=== PATIENT | male | born 1960 | race Caucasian/White ===

== ENCOUNTER 2023-02-04 09:05 | Outpatient (REF) | payer OTHER, SELFPAY ==
[2023-02-04 11:19] LABS: MANUAL DIFF FLAG NO
[2023-02-04 12:10] LABS: Basophils Percent Auto 0.2 % (0-2); Eosinophils Absolute Auto 0.1 X10*3/uL (0.0-0.4); Eosinophils Percent Auto 1.5 % (0-4); Hematocrit 47.8 % (42.0-52.0); Hemoglobin 16.1 g/dl (14.0-18.0); Imm Gran Abs Auto 0.01 X10*3/uL (0.00-0.03); Imm Gran Pct Auto 0.2 % (0.0-0.4); Lymphocytes Absolute Auto 1.3 X10*3/uL (1.2-4.9); Lymphocytes Percent Auto 27.2 % (20-40); Mean Corpuscular HGB Conc 33.7 g/dl (31.0-36.0); Mean Corpuscular Hemoglobin 29.9 pg (27.0-33.0); Mean Corpuscular Volume 88.8 fL (80.0-98.0); Mean Platelet Volume 9.6 fL (9.4-12.4); Monocytes Absolute Auto 0.4 X10*3/uL (0.1-1.2); Neutrophils Percent Auto 62.9 % (45-73); Platelet Count 177 X10*3/uL (160-400); Red Blood Count 5.38 X10*6/uL (4.60-5.80); Red Cell Distribution Width 12.3 % (11.0-16.0); White Blood Count 4.8 X10*3/uL (4.8-10.8)
[2023-02-04 12:25] LABS: Prostate Specific Antigen 5.84 ng/mL (<0.05-4.0)
[2023-02-04 12:29] LABS: ~HepC Num1 0.21 S/CO (0.00-0.79); ~Hepatitis C Antibody Nonreactive (Nonreactive)
[2023-02-04 12:31] LABS: HBc Num1 0.09 S/CO (0.00-0.79); HBsAGNum1 0.37 S/CO (0.00-0.99); Hepatitis A Antibody IgM 0.58 Index (0-0.79); Hepatitis B Core Antibody Nonreactive (Nonreactive); Hepatitis B Surface Antigen Negative (Negative); ~HepC Num1 0.21 S/CO (0.00-0.79); ~Hepatitis A Antibody IgM Nonreactive (Nonreactive); ~Hepatitis B Surface Antibody NONREACTIVE (Nonreactive); ~Hepatitis C Antibody Nonreactive (Nonreactive)
[2023-02-04 12:34] LABS: Alanine Aminotransferase 17 U/L (0-40); Albumin Level 4.3 g/dL (3.5-5.0); Alkaline Phosphatase 54 U/L (39-117); Anion Gap 12 (12-20); Aspartate Amino Transferase 22 U/L (5-37); Bilirubin Direct 0.3 mg/dL (0.0-0.5); Bilirubin Total 0.7 mg/dL (0.0-1.0); Blood Urea Nitrogen 16 mg/dL (9-16); Calcium 9.6 mg/dL (8.4-10.2); Carbon Dioxide 29 mmol/L (22-29); Chloride 104 mmol/L (96-108); Cholesterol 171 mg/dL (<200); Estimated Glomerular Filt Rate > 60; Glucose Random 91 mg/dL (60-115); HDL Cholesterol 62 mg/dL (>40); LDL Cholesterol Calculated 96 mg/dL (<100); Sodium 141 mmol/L (135-145); TSH reflex Free T4 2.15 uIU/mL (0.32-4.0); Triglycerides 68 mg/dL (<150); Vitamin D 25-OH Total 100.4 ng/mL (>30)
[2023-02-07 19:49] LABS: HIV RNA PCR Qn Copies Not Detected Copies/mL; HIV RNA PCR Qn Log Copies Not Detected Log cps/mL
== END 2023-02-04 09:06 | disposition home or self-care (01) ==
LOC: HO.HHCL 09:05
PROVIDERS: Visit Provider Pediatrics
DX: Z00.00 Encounter for general adult medical examination without abnormal findings (principal); Z20.2 Contact with and (suspected) exposure to infections with a predominantly sexual mode of transmission; Z12.5 Encounter for screening for malignant neoplasm of prostate
CPT/HCPCS: 36415; 80048; 80061; 80076; 82306; 84153; 84443; 85025; 86704; 86706; 86709; 86803; 87340; 87536; 87900

== ENCOUNTER 2023-05-15 14:45 | Outpatient (AMB) | payer OTHER, SELFPAY ==
--- NOTE | 2023-05-15 15:00 | A.OFFVIS_ITS ---
Intake Intake Visit Reasons: Elevated PSA Intake Note: New Patient presents for initial visit for elevated psa(psa 5.84) Urology Medications: none Blood Thinner: none Progressive Care Nurse Required: No Accompanied by: Self / Same As Patient Allergies No Known Allergies [No Known Allergies*] Allergy (Unverified 05/15/23 16:05) Medication List - Last Reconciled 05/15/23 by MARIANELA Schumacher No Known Home Meds HPI HPI Comments History of Present Illness Details Willy Rodriguez is a very pleasant 62-year-old male patient of Dr. Dennis. He presents to the office today as a new patient for an elevated PSA. In review of patient's chart it appears PSA 02/06--5.8. When asked he denies any bothersome urinary issues or concerns at this time. Discussed at length potential causes of elevated PSA. Discussed obtaining redraw of PSA as well as retroperitoneal ultrasound for further assessment evaluation. When asked he denies urinary urgency, urinary frequency, incontinence, nocturia, hematuria, dysuria, foul smelling urine, changes to urinary stream, flank pain, fever, and or chills. He is happy with his current voiding parameters. He denies any known family history of prostate cancer. HILLARY offered however deferred. In office urinalysis results reviewed with the patient today. He otherwise offers no other issues or concerns at this time Review of Systems Const All systems reviewed & are unremarkable except as noted in HPI and below Physical Exam Const General: cooperative, comfortable, no acute distress, well developed, alert and awake Orientation/consciousness: patient oriented x3 HEENT Head: Yes normal to inspection, Yes normocephalic and Yes atraumatic Ears: hearing grossly normal bilaterally Eyes General: appearance normal, both eyes and all related structures Neck Neck: Yes normal visual inspection and Yes trachea midline Chest Chest palpation & inspection: normal inspection of the chest Resp Effort & Inspection: normal respiratory effort and able to speak in complete sentences Cardio Rate: regular rate GI Inspection: Yes normal to inspection Rectal Exam - Male: Yes deferred General: Yes no CVA tenderness Back/Spine/Pelvis Back: no CVA tenderness Skin General skin exam: no rashes or lesions noted Neuro General: patient oriented x3 Extrem General: Yes normal to inspection Psych Appearance: grossly normal and well kempt Mental Status: mental status grossly normal Speech and movement: Normal speech and movement present and Clear speech present Affect: normal affect Attitude: cooperative Thought process: Normal thought process present Thought content: Normal thought content present Insight: Fair insight present (Psych) Judgement: Fair judgement present (Psych) Results AMB Urinalysis, Automated UA Leukoctes 0 Blanco/uL Last Edit by Morenita Jackson on 05/15/23 15:51 UA Nitrite Negative Last Edit by Morenita Jackson on 05/15/23 15:51 UA Urobilinogen 0.2 mg/dL Last Edit by Zenput[employer]ques BOARDZsameer on 05/15/23 15:51 UA Protein 0 mg/dL Last Edit by Palma[employer] on 05/15/23 15:51 UA pH 6.0 Last Edit by [employer]jac[employer] BOARD[employer]sameer on 05/15/23 15:51 UA Blood 0 Varinder/uL Last Edit by [employer] on 05/15/23 15:51 UA Specific [place] 1.030 Last Edit by [employer] on 05/15/23 15:51 UA Ketone Negative Last Edit by [employer] on 05/15/23 15:51 UA Bilirubin 0 mg/dL Last Edit by [employer] on 05/15/23 15:51 UA Glucose 0 mg/dL Last Edit by Zenputjacques BOARDZsameer on 05/15/23 15:51 Results Reviewed Results Reviewed: Laboratory Last Values Urine pH (Auto) 6.0 05/15/23 15:08 Specific [place] (Auto) 1.030 05/15/23 15:08 Urine Protein (Auto) 0 mg/dL 05/15/23 15:08 Glucose (UA)(Auto) 0 mg/dL 05/15/23 15:08 Urine Ketones (Auto) Negative 05/15/23 15:08 Urine Blood (Auto) 0 Varinder/uL 05/15/23 15:08 Urine Nitrite (Auto) Negative 05/15/23 15:08 Urine Bilirubin (Auto) 0 mg/dL 05/15/23 15:08 Urine Urobilinogen (Auto) 0.2 mg/dL 05/15/23 15:08 Leukocyte Esterase (Auto) 0 Blanco/uL 05/15/23 15:08 Assessment & Plan Assessment & Plan (1) Elevated PSA: Code(s): R97.20 - Elevated prostate specific antigen [PSA] Plan In office urinalysis results reviewed with the patient today; as noted above. HILLARY offered however deferred. Discussed at length potential causes for elevated PSA. Discussed redraw of PSA with no sex the night before, no coffee morning of, and no heavy lifting 1-2 days prior to lab draw. Will obtain retroperitoneal ultrasound for further assessment evaluation. Patient denies any bothersome urinary issues or concerns. He reports be happy with current voiding parameters. Follow-up in 4-6 weeks with labs and imaging to be completed prior; or sooner with any issues, concerns, and or questions. Orders: Orders AMB Urinalysis Automated Today Z13.9 - Encounter for screening, unspecified US retroperitoneal comp Today R97.20 - Elevated prostate specific antigen [PSA] PSA,Total (Free>4and<10) Today R97.20 - Elevated prostate specific antigen [PSA] Patient Instructions: The patient had an opportunity to ask questions regarding the treatment plan. All questions were answered. Physical exam, labs, and imaging were discussed and reviewed in detail. As well as risks, benefits, and discussion of treatment choices. No major barriers to understanding were identified. The patient expressed understanding and agreement with the above treatment plan. The patient was made aware they should contact our office by phone for worsening of their current condition, the appearance of new symptoms, or with any questions or concerns. Compliance is encouraged with any medications and follow up testing that is ordered. It is a privilege to be allowed the opportunity to participate in? your urological care.? Again, if you have any questions or concerns If you have any questions or concerns please do not hesitate to contact me. The office is [phone]. This note is constructed using voice recognition software. While every effort has been made to ensure accuracy director of corporate communications errors may have been included. Yours sincerely, MARIANELA Schumacher Coding Level of Care Code New Pt Level 3 (91110) Diagnoses Elevated PSA R97.20
== END 2023-05-15 15:46 | disposition home or self-care (01) ==
PROVIDERS: PCP Family Medicine; Visit Provider Nurse Practitioner Family
DX: R97.20 Elevated prostate specific antigen [PSA] (principal); Z13.9 Encounter for screening, unspecified
CPT/HCPCS: 99203

== ENCOUNTER → 2023-05-15 14:45 | Outpatient (BNVA) | payer OTHER, SELFPAY | PROVIDERS: PCP Family Medicine; Visit Provider Nurse Practitioner Family | DX: R97.20 Elevated prostate specific antigen [PSA] (principal) | CPT/HCPCS: 81003 ==

== ENCOUNTER 2023-06-07 12:39 | Outpatient (REF) | payer OTHER, SELFPAY ==
[2023-06-07 14:26] LABS: PSA,Total (Free>4and<10) 3.67 ng/mL (0.00-4.00)
== END 2023-06-07 12:40 | disposition home or self-care (01) ==
LOC: HO.HHCL 12:39
PROVIDERS: Visit Provider Nurse Practitioner Family
DX: Z12.5 Encounter for screening for malignant neoplasm of prostate (principal); R97.20 Elevated prostate specific antigen [PSA]
CPT/HCPCS: 36415; 84153

== ENCOUNTER 2023-06-07 13:56 | Outpatient (REF) | payer OTHER, SELFPAY ==
--- NOTE | ~2023-06-07 | US_ITS ---
EXAMINATION: US RETROPERITONEAL COMPLETE (RENAL) CLINICAL INFORMATION: Elevated prostate specific antigen. COMPARISON: Ultrasound abdomen 04/23/2019. CT abdomen and pelvis 04/22/2019. TECHNIQUE: Real-time imaging of the kidneys and bladder. FINDINGS: RIGHT KIDNEY: 9.1 x 4.5 x 5.6 cm (SAG x AP x TRV). The kidney is normal in size, contour, and echogenicity. Renal cortical thickness is normal. No calculi or focal parenchymal lesions. No hydronephrosis. LEFT KIDNEY: 10.4 x 5.3 x 5.0 cm (SAG x AP x TRV). The kidney is normal in size, contour, and echogenicity. Renal cortical thickness is normal. No calculi or focal parenchymal lesions. No hydronephrosis. BLADDER: Well distended and normal. Bilateral ureteral jets are demonstrated. Prevoid bladder volume is 382 mL. Postvoid bladder volume is 65.6 mL. Enlarged prostate volume 46.0 mL. US/US retroperitoneal comp IMPRESSION: Enlarged prostate 46 g with 65.6 mL post void residual.
== END 2023-06-07 13:57 | disposition home or self-care (01) ==
LOC: HO.US 13:56
PROVIDERS: PCP Pediatrics; Visit Provider Nurse Practitioner Family
DX: R97.20 Elevated prostate specific antigen [PSA] (principal)
CPT/HCPCS: 76770

== ENCOUNTER 2023-06-12 14:31 | Outpatient (AMB) | payer OTHER, SELFPAY ==
--- NOTE | 2023-06-12 15:02 | MHC.OFFVIS ---
Intake Intake Visit Reasons: 1m/US/PSA Intake Note: New Patient presents for initial visit for elevated psa/ultrasound (psa 3.67)(imaging 06/07/23) Urology Medications: none Blood Thinner: none Child Care Development Specialist Required: No Accompanied by: Self / Same As Patient Allergies No Known Allergies [No Known Allergies*] Allergy (Unverified 06/12/23 15:34) Medication List - Last Reconciled 06/12/23 by MARIANELA Schumacher No Known Home Meds HPI HPI Comments History of Present Illness Details Willy Rodriguez is a very pleasant 63-year-old male patient of Dr. Dennis. He presents to the office today for follow-up of his elevated PSA. Of note, patient was seen approximately 6 weeks ago at which time recommendations were made for redraw of PSA and retroperitoneal ultrasound for further assessment evaluation. These results were reviewed with the patient today. Bilateral kidneys with no calculi, lesions, and or hydronephrosis noted. Pre void bladder volume is approximately 382 mL. Postvoid bladder volume is approximately 65 mL. Prostate measures approximately 46 mL. PSAs are as follows 02/06--5.8 06/08--3.7 Discussed at length potential causes of elevated PSA. Discussed close surveillance monitoring versus prostate biopsy verses trial of finasteride. Discussed risks and benefits of these interventions at length. Patient otherwise denies any bothersome urinary issues or concerns. When asked he denies urinary urgency, urinary frequency, incontinence, nocturia, hematuria, dysuria, foul smelling urine, changes to urinary stream, flank pain, fever, and or chills. He is happy with his current voiding parameters. He denies any known family history of prostate cancer. HILLARY offered however deferred. In office urinalysis results reviewed with the patient today. He otherwise offers no other issues or concerns at this time. Review of Systems Const All systems reviewed & are unremarkable except as noted in HPI and below Physical Exam Const General: cooperative, comfortable, no acute distress, well developed, alert and awake Orientation/consciousness: patient oriented x3 HEENT Head: Yes normal to inspection, Yes normocephalic and Yes atraumatic Ears: hearing grossly normal bilaterally Eyes General: appearance normal, both eyes and all related structures Neck Neck: Yes normal visual inspection and Yes trachea midline Chest Chest palpation & inspection: normal inspection of the chest Resp Effort & Inspection: normal respiratory effort and able to speak in complete sentences Cardio Rate: regular rate GI Inspection: Yes normal to inspection Rectal Exam - Male: Yes deferred General: Yes no CVA tenderness Back/Spine/Pelvis Back: no CVA tenderness Skin General skin exam: no rashes or lesions noted Neuro General: patient oriented x3 Extrem General: Yes normal to inspection Psych Appearance: grossly normal and well kempt Mental Status: mental status grossly normal Speech and movement: Normal speech and movement present and Clear speech present Affect: normal affect Attitude: cooperative Thought process: Normal thought process present Thought content: Normal thought content present Insight: Fair insight present (Psych) Judgement: Fair judgement present (Psych) Results AMB Urinalysis, Automated UA Leukoctes 0 Blanco/uL Last Edit by [employer] on 06/12/23 15:16 UA Nitrite Negative Last Edit by [employer] on 06/12/23 15:16 UA Urobilinogen 0.2 mg/dL Last Edit by [employer] on 06/12/23 15:16 UA Protein 0 mg/dL Last Edit by [employer] on 06/12/23 15:16 UA pH 6.0 Last Edit by [employer] on 06/12/23 15:16 UA Blood 0 Varinder/uL Last Edit by [employer] on 06/12/23 15:16 UA Specific [place] 1.025 Last Edit by [employer] on 06/12/23 15:16 UA Ketone Negative Last Edit by [employer] on 06/12/23 15:16 UA Bilirubin 0 mg/dL Last Edit by [employer] on 06/12/23 15:16 UA Glucose 0 mg/dL Last Edit by [employer] on 06/12/23 15:16 Results Reviewed Results Reviewed: Laboratory Last Values Urine pH (Auto) 6.0 06/12/23 15:06 Specific [place] (Auto) 1.025 06/12/23 15:06 Urine Protein (Auto) 0 mg/dL 06/12/23 15:06 Glucose (UA)(Auto) 0 mg/dL 06/12/23 15:06 Urine Ketones (Auto) Negative 06/12/23 15:06 Urine Blood (Auto) 0 Varinder/uL 06/12/23 15:06 Urine Nitrite (Auto) Negative 06/12/23 15:06 Urine Bilirubin (Auto) 0 mg/dL 06/12/23 15:06 Urine Urobilinogen (Auto) 0.2 mg/dL 06/12/23 15:06 Leukocyte Esterase (Auto) 0 Blanco/uL 06/12/23 15:06 Date of Service: 06/07/23 EXAMINATION: US RETROPERITONEAL COMPLETE (RENAL) FINDINGS: RIGHT KIDNEY: 9.1 x 4.5 x 5.6 cm (SAG x AP x TRV). The kidney is normal in size, contour, and echogenicity. Renal cortical thickness is normal. No calculi or focal parenchymal lesions. No hydronephrosis. LEFT KIDNEY: 10.4 x 5.3 x 5.0 cm (SAG x AP x TRV). The kidney is normal in size, contour, and echogenicity. Renal cortical thickness is normal. No calculi or focal parenchymal lesions. No hydronephrosis. BLADDER: Well distended and normal. Bilateral ureteral jets are demonstrated. Prevoid bladder volume is 382 mL. Postvoid bladder volume is 65.6 mL. Enlarged prostate volume 46.0 mL. IMPRESSION: Enlarged prostate 46 g with 65.6 mL post void residual. Assessment & Plan Assessment & Plan (1) Elevated PSA: Code(s): R97.20 - Elevated prostate specific antigen [PSA] Plan In office urinalysis results reviewed with the patient today. Recent retroperitoneal ultrasound results reviewed with the patient today; as noted above. Patient denies any bothersome urinary issues or concerns at this time. He reports be happy with current voiding parameters. Recent PSA results reviewed with the patient today; as noted above. Discussed at length further treatment options with close surveillance monitoring verses prostate biopsy verses trial of finasteride; discussed risks and benefits of these interventions at length; all questions were answered Discussed redraw of PSA in 4 months however patient does not feel this is necessary and wishes to continue with follow-up annually; discussed possible delay in treatment PSA in 1 year per patient request Follow-up in 1 year with lab to be completed prior; or sooner with any issues, concerns, and or questions. Orders: Orders AMB Urinalysis Automated 06/12/23 Z13.9 - Encounter for screening, unspecified PSA,Total (Free>4and<10) 364 Days R97.20 - Elevated prostate specific antigen [PSA] Patient Instructions: The patient had an opportunity to ask questions regarding the treatment plan. All questions were answered. Physical exam, labs, and imaging were discussed and reviewed in detail. As well as risks, benefits, and discussion of treatment choices. No major barriers to understanding were identified. The patient expressed understanding and agreement with the above treatment plan. The patient was made aware they should contact our office by phone for worsening of their current condition, the appearance of new symptoms, or with any questions or concerns. Compliance is encouraged with any medications and follow up testing that is ordered. It is a privilege to be allowed the opportunity to participate in? your urological care.? Again, if you have any questions or concerns If you have any questions or concerns please do not hesitate to contact me. The office is [phone]. This note is constructed using voice recognition software. While every effort has been made to ensure accuracy cooker cleaner errors may have been included. Yours sincerely, MARIANELA Schumacher Coding Level of Care Code Est Pt Level 3 (34981) Diagnoses Elevated PSA R97.20
== END 2023-06-12 15:50 | disposition home or self-care (01) ==
PROVIDERS: PCP Family Medicine; Visit Provider Nurse Practitioner Family
DX: R97.20 Elevated prostate specific antigen [PSA] (principal)
CPT/HCPCS: 99213

== ENCOUNTER → 2023-06-12 14:31 | Outpatient (BNVA) | payer OTHER, SELFPAY | PROVIDERS: PCP Family Medicine; Visit Provider Nurse Practitioner Family | DX: R97.20 Elevated prostate specific antigen [PSA] (principal) | CPT/HCPCS: 81003 ==

== ENCOUNTER 2024-12-10 15:15 | Outpatient (REF) | payer OTHER, SELFPAY ==
[2024-12-10 17:51] LABS: MANUAL DIFF FLAG NO
[2024-12-10 18:01] LABS: Basophils Percent Auto 0.2 % (0-2); Eosinophils Absolute Auto 0.1 X10*3/uL (0.0-0.4); Eosinophils Percent Auto 1.4 % (0-4); Hemoglobin 15.1 g/dl (14.0-18.0); Imm Gran Abs Auto 0.01 X10*3/uL (0.00-0.03); Imm Gran Pct Auto 0.2 % (0.0-0.4); Lymphocytes Percent Auto 18.4 % (20-40); Mean Corpuscular HGB Conc 34.3 g/dl (31.0-36.0); Mean Corpuscular Hemoglobin 29.7 pg (27.0-33.0); Mean Corpuscular Volume 86.6 fL (80.0-98.0); Mean Platelet Volume 9.3 fL (9.4-12.4); Monocytes Absolute Auto 0.4 X10*3/uL (0.1-1.2); Monocytes Percent Auto 6.2 % (2-11); Neutrophils Absolute Auto 4.1 x10*3/uL (2.0-8.3); Neutrophils Percent Auto 73.6 % (45-73); Platelet Count 161 X10*3/uL (160-400); Red Blood Count 5.08 X10*6/uL (4.60-5.80); Red Cell Distribution Width 12.5 % (11.0-16.0); White Blood Count 5.6 X10*3/uL (4.8-10.8)
[2024-12-10 18:22] LABS: Alanine Aminotransferase 22 U/L (0-40); Albumin Level 4.3 g/dL (3.5-5.0); Alkaline Phosphatase 66 U/L (39-117); Anion Gap 11 (12-20); Aspartate Amino Transferase 31 U/L (5-37); Bilirubin Direct 0.1 mg/dL (0.0-0.5); Bilirubin Total 0.3 mg/dL (0.0-1.0); Blood Urea Nitrogen 21 mg/dL (9-16); Calcium 8.6 mg/dL (8.4-10.2); Carbon Dioxide 27 mmol/L (22-29); Chloride 105 mmol/L (96-108); Estimated Glomerular Filt Rate > 60; Glucose Random 131 mg/dL (60-115); Potassium 3.7 mmol/L (3.3-5.1); Sodium 139 mmol/L (135-145); Total Protein 6.6 g/dL (6.5-8.0)
[2024-12-10 18:36] LABS: PSA,Total (Free>4and<10) 4.82 ng/mL (0.00-4.00)
[2024-12-11 08:50] LABS: HBsAGNum1 0.43 S/CO (0.00-0.99); Hepatitis B Surface Antigen Negative (Negative); ~HepC Num1 0.27 S/CO (0.00-0.79); ~Hepatitis B Surface Antibody NONREACTIVE (Nonreactive); ~Hepatitis C Antibody Nonreactive (Nonreactive)
[2024-12-11 09:08] LABS: CT PCR NOT DETECTED (Not Detect.); NG PCR NOT DETECTED (Not Detect.)
[2024-12-11 12:58] LABS: Free Prostate Spec Ag 0.7 ng/mL; Percent Free Prostate Spec Ag 16 % (calc) (>25); Prostate Specific Ag Total 4.4 ng/mL (< OR = 4.0)
== END 2024-12-10 15:16 | disposition home or self-care (01) ==
LOC: HO.CHCLDS 15:15
PROVIDERS: Visit Provider Pediatrics
DX: Z00.00 Encounter for general adult medical examination without abnormal findings (principal); K63.5 Polyp of colon; Z12.5 Encounter for screening for malignant neoplasm of prostate; Z23 Encounter for immunization
CPT/HCPCS: 36415; 80048; 80076; 84153; 84154; 85025; 86706; 86803; 87340; 87491; 87591

== ENCOUNTER 2025-06-02 19:11 | Outpatient (REF) | payer OTHER, SELFPAY ==
--- OUTSIDE RECORDS SUMMARY | 2025-06-02 15:30 | XMS_ITS | Encounter Summary ---
Author Organization [employer] Address [address] [place] [address] Care Team Providers Care Top Tile Decorator Name Role Phone Naomi Vigil MD Primary Care Provider [phone] Encounter Details Date Type Department Care Team ([facility] st Contact Info) Description 06/02/2025 3:30 PM EST Office Visit [facility] [address], [place] [id number] Sharona Streeter MD [address] [place] [address] Dysuria (Primary Dx); Erectile dysfunction, unspecified erectile dysfunction type Social History Tobacco Use Types Packs/Day Years Used Date Smoking Tobacco: Never Passive Smoke Exposure: Never Smokeless Tobacco: Never Alcohol Use Standard Drinks/Week Comments Not Currently 0 (1 standard drink = 0.6 oz pur e alcohol) Depression Answer Date Recorded Patient Health Questionnaire-9 Score 0 12/10/2024 Patient Health Questionnaire-9 Score 0 12/10/2024 Last PHQ-9: Questionnaire Data Not on file 0 12/10/2024 Housing Stability Answer Date Recorded What is your housing situation today? I have jamar wong 12/04/[address] you li ve. Do you have problems with any of the following? None of the above 12/04/2024 Food Insecurity Answer Date Recorded Within the past 12 months, y ou worried that your food would run out before you got money to buy more: Never True 12/04/2024 Within the past 12 months,th e food you bought just didn't last and you didn't have enough money to get more: Never True Transportation Answer Date Recorded In the past 12 months, has l ack of transportation kept you from medical appts, meetings, work or from getting things needed for daily living? No 12/04/2024 Utilities Answer Date Recorded In the past 12 months, has t he electric, gas, oil or water company threatened to shut off services in your home? No 12/04/2024 Depression Answer Date Recorded Patient Health Questionnaire-2 Score 0 12/10/2024 Internet Access Answer Date Recorded Internet Access Q1 Yes 12/04/2024 Internet Access Q2 Not on file 12/04/2024 Sex and Gender Information Value Date Recorded Sex Assigned at Male 04/16/2022 10:33 AM EDT Legal Sex Male 10:33 AM EDT Gender Identity Male 04/16/2022 10:33 AM EDT Sexual Orientation Choose not to disclose 2021 10:33 AM EDT documented as of this encounter Last Filed Vital Signs Vital Sign Reading Time Taken Comments Blood Pressure 122/84 06/02/2025 3:19 PM EST Pulse 92 06/02/2025 3:19 PM EST Temperature 36.6 C (97.8 F) 06/02/2025 3:19 PM EST Respiratory Rate 14 06/02/2025 3:19 PM EST Oxygen Saturation 97% 06/02/2025 3:19 PM EST Inhaled Oxygen Concentration - - Weight 61.2 kg (135 lb) 06/02/2025 3:19 PM EST Height 177.8 cm (5' 10 ) 06/02/2025 3:19 PM EST Body Mass Index 19.37 06/02/2025 3:19 PM EST documented in this encounter Progress Notes * Sharona Lara MD - 06/02/2025 3:30 PM EST SUBJECTIVE: Willy Leahy is a 64 y.o. year old male who presents for acute visit . Willy Leahy, age 64 years Urogenital symptoms following unprotected sexual intercourse - Had unprotected sexual intercourse with a woman approximately 4 weeks ago; initial use of condom,then brief unprotected exposure - Onset of mild burning sensation with urination approximately 5-6 days ago; initially thought to be imagination, but sensation persisted and became more distinct - Reports slight discomfort, currently ongoing - Noted minimal, possibly cloudy, discharge - Denies fever - Denies history of chlamydia - Denies genital lesions, blisters, or ulcers - Past history of Lyme disease, twice in 25 years Erectile dysfunction - Reports difficulty maintaining erection during intercourse, especially with condom use - Has previously used Viagra, always at half tablet dose, unable to recall exact mg strength - ; states current request for Viagra is not for Social History Social History Narrative Not on file Problem List[1] Family History[2] Review of Systems Constitutional: Negative. HENT: Negative. Respiratory: Negative. Cardiovascular: Negative. Musculoskeletal: Positive for arthralgias. OBJECTIVE: Vitals: 06/02/25 1519 BP: 122/84 BP Location: Left arm Patient Position: Sitting BP Cuff Size: Adult Pulse: 92 Resp: 14 Temp: 97.8 ??F (36.6 ??C) TempSrc: Oral SpO2: 97% Weight: 135 lb (61.2 kg) Height: 5' 10 (1.778 m) Physical Exam Constitutional: Appearance: Normal appearance. Cardiovascular: Rate and Rhythm: Normal rate and regular rhythm. Pulmonary: Effort: Pulmonary effort is normal. Breath sounds: Normal breath sounds. Abdominal: General: Abdomen is flat. Palpations: Abdomen is soft. Musculoskeletal: Right lower leg: No edema. Left lower leg: No edema. Neurological: Mental Status: He is alert. Follow Up: No follow-ups on file. Medications Ordered Prior to Encounter[3] Problem List Items Addressed This Visit Dysuria - Primary Relevant Medications doxycycline (Vibra-Tabs) 100 MG tablet Other Relevant Orders Chlamydia/N. Gonorrhoeae, PCR, Urine POCT Urinalysis (Completed) Erectile dysfunction Relevant Medications sildenafil (Viagra) 25 MG tablet Dysuria: - Dysuria following unprotected sexual intercourse. Differential diagnosis includes chlamydia and urinary tract infection. No evidence of genital lesions or ulcers. - Prescribed doxycycline 100 mg twice daily for seven days due to high suspicion of chlamydia. Ordered urinalysis for urinary tract infection and chlamydia. Will review test results and confirm diagnosis. Advised to inform sexual partners if diagnosis is confirmed. Recommended condom use for futuresexual activity. Erectile dysfunction, unspecified erectile dysfunction type: - Erectile dysfunction managed previously with sildenafil at low dose. - Prescribed sildenafil 25 mg to be taken as needed. Advised regarding insurance coverage and pharmacy copayment. This note was drafted using Internet [employer]) technology. The patient/patient's guardian has been informed and has consented to the use of this technology: Yes [1] Patient Active Problem List Diagnosis Benign colon polyp Dysuria Erectile dysfunction [2] Family History Problem Relation Name Age of Onset No Known Problems Mother [3] No current outpatient medications on file prior to visit. No current facility-administered medications on file prior to visit. documented in this encounter Plan of Treatment Scheduled Orders Name Type Priority Associated Diagnoses Orde r Schedule Chlamydia/N. Gonorrhoeae, PC R, Urine Lab Routine Dysuria Ordered: 06/02/2025 documented as of this encounter Procedures Procedure Name Priority Date/Time Associated Diagnosis Comments POCT URINALYSIS DIPSTICK Routine 06/02/2025 4:07 PM EST Dysuria documented in this encounter Results * POCT Urinalysis (06/02/2025 4:07 PM EST) Color, UA Yellow Clarity, UA Clear Glucose, UA Negative Bilirubin, UA Negative Ketones, UA Negative Spec Grav, UA 1.020 Blood, UA Negative Negative, None Detected pH, UA 6.0 Protein, UA Negative Urobilinogen, UA 0.2 Leukocytes, UA Negative Negative, Rare, Trace, 1+ (17), 2+ (35), 3+ (70), Trace (15) Nitrite, UA Negative Negative, None Detected Appearance, UA clear QC Media Lot # [id number] Lot# Expiration Date Urine (Urine, Random) 06/02/2025 4:07 PM EST us Sharona Lara MD POINT OF CARE TEST EN TER/EDIT ORDERABLES Final Result documented in this encounter Visit Diagnoses Diagnosis Dysuria- Primary Erectile dysfunction, unspecified erectile dysfunction type documented in this encounter Additional Health Concerns Assessment Noted Time PHQ-9 Depression Total Score: 0 12/11/19 25 2:54 PM EDT documented as of this encounter Care Teams Top Tile Decorator Relationship Specialty Start Date End Date Naomi Vigil MD [address] [place] [id number] PCP - General Internal Medicine 01/01/23 documented as of this encounter
--- OUTSIDE RECORDS SUMMARY | 2025-06-02 21:09 | XMS_ITS | Encounter Summary ---
Author Organization [employer] Address [address] [facility] [address] [place] [address] Care Team Providers Care Workforce Staffing Advisor Name Role Phone Naomi Vigil MD Primary Care Provider [phone] Reason for Visit * Reason Onset Date Comments Dental Exam 07/08/2024 Encounter Details Date Type Department Care Team ([facility] st Contact Info) Description 07/08/[address] [facility] [address], [place] [id number] Sukhjinder Dozier, DMD [address] [place] [address] Dental Exam Social History Tobacco Use Types Packs/Day Years Used Date Smoking Tobacco: Never Passive Smoke Exposure: Never Smokeless Tobacco: Never Alcohol Use Standard Drinks/Week Comments Not Currently 0 (1 standard drink = 0.6 oz pur e alcohol) Depression Answer Date Recorded Patient Health Questionnaire-9 Score 0 01/23/2023 Depression Answer Date Recorded Patient Health Questionnaire-2 Score 0 01/23/2023 Sex and Gender Information Value Date Recorded Sex Assigned at Male 04/16/2022 10:33 AM EDT Legal Sex Male 10:33 AM EDT Gender Identity Male 04/16/2022 10:33 AM EDT Sexual Orientation Choose not to disclose 2021 10:33 AM EDT documented as of this encounter Miscellaneous Notes * Telephone Encounter - Marya Ro - 07/08/2024 2:55 PM EST Patient is on waiting list since 01/2024. Checking in on the status of appt. Please reach out to patient for scheduling DR documented in this encounter Plan of Treatment Not on file documented as of this encounter Visit Diagnoses Not on filedocumented in this encounter Additional Health Concerns Assessment Noted Time PHQ-9 Depression Total Score: 0 01/24/20 10:37 AM EDT documented as of this encounter Care Teams Workforce Staffing Advisor Relationship Specialty Start Date End Date Naomi Vigil MD [address] [place] [phone] PCP - General Internal Medicine 01/01/23 documented as of this encounter
--- OUTSIDE RECORDS SUMMARY | 2025-06-02 21:09 | XMS_ITS | Encounter Summary ---
Author Organization [employer] Address [address] [facility] [address] [place] [address] Care Team Providers Care Manager Search Engine Name Role Phone Naomi Vigil MD Primary Care Provider [phone] Encounter Details Date Type Department Care Team (Latest Contact Info) Description 06/02/2025 Travel Social History Tobacco Use Types Packs/Day Years [...] AM EDT documented as of this encounter Plan of Treatment Not on file documented as of this encounter Visit Diagnoses Not on filedocumented in this encounter Additional Health Concerns Assessment Noted Time PHQ-9 Depression Total Score: 0 12/11/19 25 2:54 PM EDT documented as of this encounter Care Teams Manager Search Engine Relationship Specialty Start Date End Date Naomi Vigil MD [address] [place] [address] PCP - General Internal Medicine 01/01/23 documented as of this encounter
--- OUTSIDE RECORDS SUMMARY | 2025-06-02 21:09 | XMS_ITS | Clinical Summary ---
Author Organization [employer] Address [address] [facility] [address] [place] [address] Care Team Providers Care General Activities Therapist Name Role Phone Naomi Vigil MD Primary Care Provider [phone] Allergies No known active allergies Medications doxycycline (Vibra-Tabs) 100 MG tabletIndication s:Dysuria Take 1 tablet (100 mg) by mouth 2 times daily for 7 days. Take with a full glass of water and do not lie down for at least 30 minutes after. 14 tablet 06/02/2025 4:57 PM EST 5 06/09/20 25 Active sildenafil (Viagra) 25 MG tabletIndication s:Erectile dysfunction, unspecified erectile dysfunction type Take 1 tablet (25 mg) by mouth if needed each day for erectile dysfunction. 10 tablet 06/02/2025 4:57 PM EST 5 07/02/19 26 Active Active Problems Problem Noted Date Diagnosed Date Dysuria 06/02/2025 Erectile dysfunction 06/02/2025 Benign colon polyp 01/23/2023 Encounters Date Type Department Care Team Description 06/02/2025 3:30 PM EST Office Visit [facility] [address] [place] [address] Sharona Streeter MD Dysuria (Primary Dx); Erectile dysfunction, unspecified erectile dysfunction type 06/02/2025 Travel from Last 3 Months Immunizations Immunization Administration Dates Next Due Pfizer Covid-19 Vaccine 12+ Bivalent 06/14/2022 Td (adult), unspecified 05/21/2013 Tdap 12/10/2024 Zoster, Recombinant 07/24/2023,01/23/2023 Family History Medical History Relation Name Comments No Known Problems Mother Relation Name Status Comments Mother Alive Social History Tobacco Use Types Packs/Day Years Used Date Smoking Tobacco: Never Passive Smoke Exposure: Never Smokeless Tobacco: Never Tobacco Cessation:Counseling Given: Not Answered Alcohol Use Standard Drinks/Week Comments Not Currently [...] not to disclose 2021 10:33 AM EDT Last Filed Vital Signs Vital Sign Reading [...] Mass Index 19.37 06/02/2025 3:19 PM EST Plan of Treatment Health Maintenance Due Date Last Done Comments CT Colonography 1961 Colonoscopy 1961 Colorectal Cancer Screening 1961 FIT DNA/Cologuard 1961 FIT 1961 FOBT 1961 HIV Screening 1961 Sigmoidoscopy 1961 Pneumococcal Vaccine: 50+ Years (1 of 1 - PCV) 2011 COVID-19 Vaccine ( season) 2025 06/14/2022, 06/23/2021, 11/17/2020, Additional history exists Influenza Vaccine (#1) 2025 Dental Oral Exam 05/23/2025 11/20/2024 Dental Prophylaxis 05/23/2025 11/20/2024 Dental X-Ray: Bitewings 11/21/2025 11/20/2024 SDOH Screening 12/04/2025 12/04/2024 Alcohol/Substance Use Screening 12/10/2025 12/10/2024 Depression Screening 12/10/2025 12/10/2024, 12/11/19 Disability Screening 12/10/2025 12/10/2024 Tobacco Screening 06/02/2026 06/02/2025 Dental X-Ray: Full Mouth 11/22/2027 11/20/2024 Lipid Panel 02/05/2028 02/04/2023 DTaP/Tdap/Td Vaccines (2 - Td or Tdap) 12/10/2034 12/10/2024, 05/21/2013 RSV Patients and Patients Aged 60 years or older (1 - 1-dose 75+ series) 2036 Zoster Vaccines Completed 07/24/2023, 01/23/2023 Hepatitis C Screening Completed 12/10/2024 , 02/04/2023, 02/04/2023 HIB Vaccines Aged Out No longer eligi ble based on patient's age to complete this topic HPV Vaccines Aged Out No longer eligi ble based on patient's age to complete this topic Hepatitis A Vaccines Aged Out No long er eligible based on patient's age to complete this topic Hepatitis B Vaccines Aged Out No long er eligible based on patient's age to complete this topic IPV Vaccines Aged Out No longer eligi ble based on patient's age to complete this topic Meningococcal B Vaccine Aged Out No l onger eligible based on patient's age to complete this topic Meningococcal Vaccine Aged Out No jamaal armando eligible based on patient's age to complete this topic RSV under 20 months Aged Out No longe r eligible based on patient's age to complete this topic Rotavirus Vaccines Aged Out No longer eligible based on patient's age to complete this topic Procedures Procedure Name Priority Date/Time Associated Diagnosis Comments POCT URINALYSIS DIPSTICK Routine 06/02/2025 4:07 PM EST Dysuria HEPATITIS C AB W/REFL TO HCV RNA, QN, PCR Routine 12/10/2024 3:17 PM EDT Encounter for immunization Benign colon polyp Routine adult health maintenance PROPHYLAXIS - ADULT Routine 11/20/2024 1 :00 PM EDT INTRAORAL - COMPLETE SERIES OF RADIOGRAPHIC IMAGES Routine 11/20/2024 1:00 PM EDT PERIODIC ORAL EVALUATION - ESTABLISHED PATIENT Routine 11/20/2024 1:00 PM EDT LIPID PANEL, STANDARD Routine 02/04/2023 9:11 AM EDT Routine adult health maintenance from Last 3 Months or Most Recently Relevant to Health Maintenance Results * POCT Urinalysis (06/02/2025 4:07 PM [...] Media Lot # [id number] Lot# Expiration Date [id number] Urine (Urine, Random) 06/02/2025 4:07 PM EST us Sharona Lara MD POINT OF CARE TEST EN TER/EDIT ORDERABLES Final Result * Hepatitis C Antibody with Reflex to HCV, RNA, Quantitative, Real-Time PCR (12/10/2024 3:17 PM EDT) Hepatitis C Antibody Nonreactive Nonreactive [facility] Comment:Antibodies to HCV no t detected; does not exclude early acuteHCV infection. Blood Venous blood specimen / Unknown 12/10/2024 3:17 PM EDT 12/10/2024 5:43 PM EDT us Naomi Vigil MD LAB BLOOD ORDERABLES Final Re sult [facility] [address] [place] [phone] * Lipid Panel, Standard (02/04/2023 9:11 AM EDT) Triglycerides 68 <150 mg/dL [facility] Comment:Desirable Triglyceri de: less than 150 mg/dLBorderline High Triglyceride 150-199 mg/dLHigh Triglyceride: 200-499 mg/dLVery High Triglyceride: greater than or equal to 5OO mg/dL Cholesterol 171 <200 mg/dL [facility] Comment:Desirable Cholestero l: less than 200 mg/dLBorderline High Cholesterol: 200-239 mg/dLHigh Cholesterol: greater than 239 mg/dL LDL Cholesterol Calculated 96 <100 mg/dL [facility] Comment:Desirable LDL: less than 100 mg/dLNear Optimal/Above Optimal LDL: 110- 129 mg/dLBorderline High LDL: 130-159 mg/dLHigh LDL: 160-189 mg/dLVery High LDL: greater than or equal to 190 mg/dL HDL Cholesterol 62 >40 mg/dL [facility] Comment:Desirable HDL: great er than 40 mg/dL Note: This HDL assay may give artificially low results in patients with liver disease. Blood Venous blood specimen / Unknown 02/04/2023 9:11 AM EDT 02/04/2023 11:16 AM EDT us Naomi Vigil MD LAB BLOOD ORDERABLES Final Re sult [facility] [address] [place] [address] [phone] from Last 3 Months or Most Recently Relevant to Health Maintenance Insurance [employer] [facility] * Guarantor: Willy Huffman Account Type Relation to Patient Date of Phone Billing Address Personal/Family Self [facility] [address] [phone] Care Teams General Activities Therapist Relationship Specialty Start Date End Date Naomi Vigil MD [address] [place] [phone] PCP - General Internal Medicine 01/01/23
[2025-06-03 01:55] LABS: CT PCR Urine NOT DETECTED (Not Detect.); NG PCR Urine NOT DETECTED (Not Detect.)
== END 2025-06-02 19:12 | disposition home or self-care (01) ==
LOC: HO.HHCLNP 19:11
PROVIDERS: Visit Provider Internal Medicine
DX: R30.0 Dysuria (principal); Z20.2 Contact with and (suspected) exposure to infections with a predominantly sexual mode of transmission
CPT/HCPCS: 87491; 87591